=== PATIENT | male | born 1955 | race Caucasian/White ===

== ENCOUNTER 2017-10-29 06:02 | Day surgery (SDC) | END 2017-10-29 17:53 | disposition home or self-care (01) ==

== ENCOUNTER 2019-02-24 15:41 | Emergency (ER) | payer OTHER ==
[~2019-02-24] VITALS: Ht 165.1 cm; Wt 101.8 kg
[~2019-02-24 15:41] MED LIST: ASPI-817 PO; ATOR40TA68 PO; BENA40TA56 PO; CLOP75TA27 PO; GEMF600T8 PO
[2019-02-24 15:52] VITALS: Ht 165.1 cm; Wt 101.8 kg
--- NOTE | 2019-02-24 16:06 | ERD ---
ER Documentation Chief Complaint Chief Complaint RIGHT FLANK PAIN, BLOOD IN URINE X3 DAYS, NAUSEA, NO VOMITING HPI The patient is a 63-year-old male, presenting to the ER because of acute right flank pain for the last 3-day with intermittent bloody urine. He denies similar symptoms previously, denies fever, chills, neck pain, complains of right shoulder pain for the last month, denies any trauma, the pain is radiating down to the right side of the chest. He denies hemoptysis, hematemesis, hematochezia. He denies vomiting, dysuria, diarrhea, constipation. He used to smoke until 20 years ago, drinks socially Past medical history: Hypertension, dyslipidemia, CAD, migraine Past surgical history: Stent PCI, cholecystectomy, left leg surgery ROS All systems reviewed and are negative except as per history of present illness. Medications Home Meds Active Scripts Ibuprofen* (Motrin*) 600 Mg Tab, 600 MG PO Q6H PRN for PAIN AND OR ELEVATED TEMP, #20 TAB Prov:RIVAS CARROLL MD 02/24/19 Reported Medications Sumatriptan Succinate* (Sumatriptan Succinate* Inj) 6 Mg/0.5 Ml Pen.injctr, 6 MG SQ NEEDED PRN for MIGRAINE, EA MAX 6 mg/dose, repeat in 1 hour if needed. MAX 12 mg/24 hours 02/24/19 Clopidogrel Bisulfate* (Clopidogrel Bisulfate*) 75 Mg Tablet, 75 MG PO DAILY, #30 TAB 02/24/19 Atorvastatin* (Atorvastatin*) 40 Mg Tablet, 40 MG PO QHS, #30 TAB 02/24/19 Topiramate* (Topiramate*) 50 Mg Tablet, 50 MG PO BID, TAB 02/24/19 Terazosin Hcl* (Terazosin Hcl*) 5 Mg Capsule, 5 MG PO HS, CAP 02/24/19 Aspirin* (Aspirin* EC) 81 Mg Tablet.dr, 81 MG PO DAILY, TAB 02/24/19 Amlodipine Besylate* (Amlodipine Besylate*) 10 Mg Tablet, 10 MG PO DAILY, #30 TAB 02/24/19 Gemfibrozil* (Gemfibrozil*) 600 Mg Tablet, 600 MG PO BID, TAB 02/24/19 Sertraline Hcl* (Sertraline Hcl*) 50 Mg Tablet, 50 MG PO DAILY, #30 TAB 02/24/19 Discontinued Reported Medications Atorvastatin* (Atorvastatin*) 40 Mg Tablet, 40 MG PO DAILY, #30 10/29/17 Aspirin* (Aspirin* EC) 81 Mg Tablet.dr, 81 MG PO DAILY, #30 10/29/17 Benazepril Hcl* (Benazepril Hcl*) 40 Mg Tablet, 40 MG PO DAILY, #30 10/29/17 Gemfibrozil* (Gemfibrozil*) 600 Mg Tablet, 600 MG PO BID, #60 10/29/17 Discontinued Scripts Clopidogrel Bisulfate (Clopidogrel) 75 Mg Tablet, 75 MG PO DAILY, #30 TAB 11 Refills Prov:Rivas Bronson DO 10/29/17 Allergies Allergies: Coded Allergies: No Known Allergy (Unverified , 02/24/19) PMhx/Soc History of Surgery: Yes (TONSIL,APPY,CHOLECYSTECTOMY, LOWER LEG/FOOT RECONSTRUCTION ) Anesthesia Reaction: No Hx Neurological Disorder: No Hx Respiratory Disorders: No Hx Cardiac Disorders: Yes (HTN, CHOLESTEROL ) Hx Psychiatric Problems: No Hx Miscellaneous Medical Probl: No Hx Alcohol Use: No Hx Substance Use: No Hx Tobacco Use: No Physical Exam Vitals Vital Signs Date Temp Pulse Resp B/P (MAP) Pulse Ox O2 O2 Flow FiO2 Time Delivery Rate 02/24/19 68 18 120/84 100 Room Air 21:55 (96) 02/24/19 86 16 144/83 97 Room Air 19:58 (103) 02/24/19 67 18 121/70 100 Room Air 16:03 (87) 02/24/19 98.1 78 17 111/57 97 15:52 (75) Physical Exam Const: No acute distress. Head: Atraumatic. Eyes: Normal Conjunctiva. ENT: Normal External Ears, Nose and Mouth. Neck: Full range of motion. No meningismus. Resp: Clear to auscultation bilaterally. Cardio: Regular rate and rhythm. Abd: Soft, non distended, normal bowel sounds, non tender. Mild right flank tenderness, no right lower quadrant/right upper quadrant/epi gastric/rigidity/rebound tenderness Skin: No petechiae or rashes. Back: No midline or flank tenderness. Ext: No cyanosis, or edema. Mild vague right shoulder tenderness, no crepitus, not warm to touch Neur: Awake and alert. No focal deficit Psych: Normal Mood and Affect. Result Diagram: 02/24/19 1624 02/24/19 1624 Results 24 hrs Laboratory Tests Test 02/24/19 16:24 02/24/19 19:37 White Blood Count 8.4 10^3/ul Red Blood Count 5.09 10^6/ul Hemoglobin 14.4 g/dl Hematocrit 42.5 % Mean Corpuscular Volume 83.5 fl Mean Corpuscular Hemoglobin 28.3 pg Mean Corpuscular Hemoglobin Concent 33.9 g/dl Red Cell Distribution Width 12.8 % Platelet Count 193 10^3/UL Mean Platelet Volume 9.0 fl Immature Granulocytes % 0.200 % Neutrophils % 78.8 % Lymphocytes % 15.0 % Monocytes % 5.2 % Eosinophils % 0.6 % Basophils % 0.2 % Nucleated Red Blood Cells % 0.0 /100WBC Immature Granulocytes # 0.020 10^3/ul Neutrophils # 6.6 10^3/ul Lymphocytes # 1.3 10^3/ul Monocytes # 0.4 10^3/ul Eosinophils # 0.1 10^3/ul Basophils # 0.0 10^3/ul Nucleated Red Blood Cells # 0.0 10^3/ul Sodium Level 138 mmol/L Potassium Level 3.9 mmol/L Chloride Level 105 mmol/L Carbon Dioxide Level 24 mmol/L Anion Gap 9 Blood Urea Nitrogen 26 mg/dl Creatinine 1.15 mg/dl Est Glomerular Filtrat Rate mL/min > 60 mL/min Glucose Level 119 mg/dl Calcium Level 9.1 mg/dl Total Bilirubin 0.4 mg/dl Direct Bilirubin 0.00 mg/dl Indirect Bilirubin 0.4 mg/dl Aspartate Amino Transf (AST/SGOT) 32 IU/L Alanine Aminotransferase (ALT/SGPT) 35 IU/L Alkaline Phosphatase 60 IU/L Total Protein 7.2 g/dl Albumin 4.0 g/dl Globulin 3.20 g/dl Albumin/Globulin Ratio 1.25 Lipase 183 U/L Bedside Urine pH (LAB) 7.0 Bedside Urine Protein (LAB) Negative Bedside Urine Glucose (UA) Negative Bedside Urine Ketones (LAB) Negative Bedside Urine Blood Negative Bedside Urine Nitrite (LAB) Negative Bedside Urine Leukocyte Esterase (L Negative Current Medications Medications Dose Sig/Radha Start Time Status Last (Trade) Ordered Route PRN Stop Time Admin Dose Reason Admin Sodium 1,000 ml @ Q1H ONCE 02/24/19 DC 02/24/19 Chloride 1,000 mls/hr IV 16:30 16:37 02/24/19 17:29 IV Flush 10 ml STK-MED 02/24/19 DC (NS 10 ml) ONCE .ROUTE 17:10 02/24/19 17:11 Sodium 100 ml @ ud STK-MED 02/24/19 DC Chloride ONCE .ROUTE 17:10 02/24/19 17:11 Iohexol 100 ml @ ud STK-MED 02/24/19 DC ONCE .ROUTE 17:10 02/24/19 17:11 Ketorolac 30 mg ONCE STAT 02/24/19 DC 02/24/19 Tromethamine IV 19:25 19:55 (Toradol) 02/24/19 19:33 Procedures/MDM [address] [address] Radiology Main Line: [phone] DIAGNOSTIC IMAGING REPORT Patient: NATY GARRETT : 1955 Age: 63 Sex: M MR #: [id number] DOS: 02/24/191924 Ordering MD: RIVAS CARROLL MD Location: E/R Room/Bed: PROCEDURE: XR Right Shoulder. CLINICAL INDICATION: Right shoulder pain. TECHNIQUE: Three views. Frontal internal rotation, frontal external rotation, and scapular Y-view. COMPARISON: No prior study is available for comparison. FINDINGS: There is no fracture or dislocation. The soft tissues are normal. Articular surfaces are intact. There is no lytic or blastic lesion. There is no radiopaque foreign body. IMPRESSION: 1. Normal images of the right shoulder. RPTAT: QQ .Andrzej Bullock MD, Date Time Electronically viewed and signed by .Andrzej Bullock MD, on 02/24/2019 23:30 .R/ CC: RIVAS CARROLL MD [id number] [address] [address] Radiology Main Line: [phone] DIAGNOSTIC IMAGING REPORT Patient: NATY GARRETT : 1955 Age: 63 Sex: M MR #: [id number] DOS: 02/24/19 1619 Ordering MD: RIVAS CARROLL MD Location: E/R Room/Bed: PROCEDURE: CTA Chest and pulmonary angiogram. CLINICAL INDICATION: Chest pain TECHNIQUE: CT scan of the chest and CT pulmonary angiogram was performed on a multidetector high-resolution CT scanner. Coronal and sagittal reformatted images were obtained as well. 3D volumetric MIP images were rendered. The patient was examined following the uncomplicated intravenous administration of 100 cc of Isovue 370 IV contrast. DICOM images are available. CTDI 20.1 mGy, and DLP 764.07 mGy-cm. One or more of the following dose reduction techniques were used: - Automated exposure control. - Adjustment of the mA and/or kV according to patient size. - Use of iterative reconstruction technique. COMPARISON: No prior studies are available for comparison. FINDINGS: Images soft tissues demonstrate the thoracic aorta and great vessels are normal in appearance. The pulmonary arteries are normal in appearance with no evidence of pulmonary emboli. The heart is normal in size. The mediastinum is unremarkable. The visualized thyroid is normal. Images of the lungs demonstrate the lungs are clear without consolidation. No evidence of pulmonary nodules are seen. Mild hazy ground-glass densities seen in the dependent portions lung consistent with atelectasis. The osseous structures are unremarkable. The upper abdomen is unremarkable. IMPRESSION: No evidence of pulmonary embolus. CT of the chest at demonstrates minimal bibasilar atelectasis RPTAT: [facility] Physician Katelyn Date Time Electronically viewed and signed by Physician Katelyn on 02/24/2019 18:16 RL/ CC: RIVAS CARROLL MD [id number] [address] [address] Radiology Main Line: [phone] DIAGNOSTIC IMAGING REPORT Patient: NATY GARRETT : 1955 Age: 63 Sex: M [id number] DOS: 02/24/19 1609 Ordering MD: RIVAS CARROLL MD Location: E/R Room/Bed: PROCEDURE: CT Abdomen and Pelvis without contrast. CLINICAL INDICATION: Abdominal and back pain TECHNIQUE: CT scan of the abdomen and pelvis without contrast was performed on a multi-detector high-resolution CT scanner. The patient was scanned without IV contrast. Coronal and sagittal reformatted images were obtained from the axial source images. DICOM images are available. CTDI equals 22.4 mGy, and DLP equals are 1488.9 mGy-cm. One or more of the following dose reduction techniques were used: - Automated exposure control. - Adjustment of the mA and/or kV according to patient size. - Use of iterative reconstruction technique. COMPARISON: None. FINDINGS: Images of the abdominal organs demonstrate the liver is unremarkable in appearance. The patient status post cholecystectomy. There is no intra or extrahepatic ductal dilatation. The pancreas, spleen and adrenal glands are normal in appearance. The kidneys are symmetric in appearance. No hydronephrosis is seen. There is a hypodensity within the right renal pole which measures 1.6 cm. Images of the bowel loops demonstrate there are unremarkable without evidence of wall thickening or fatty stranding. Calcifications are scattered in the aorta. Within the central mesentery is somewhat of a swirling of vessels with hazy ground-glass density of the mesentery. No lymphadenopathy is seen. Images of the pelvis demonstrate the visualized bowel loops are unremarkable. The appendix is not visualized however no pericecal fat stranding is present. The bladder is unremarkable. There are prostatic calcifications present. There is a right greater left inguinal hernia containing fat only. No free fluid is visualized. Osseous structures demonstrate scattered spurs along the lower thoracic spine. The lung bases are clear. IMPRESSION: CT of the abdomen pelvis demonstrates the bowel loops are normal in appearance however there is a subtle swirling of the central mesenteric vessels to the left with diffuse ground-glass density of the mesentery. This could represent an inflammatory process such as a panniculitis versus inflammatory changes from questionable internal hernia. No obstruction is seen. Bilateral inguinal hernias containing fat. Status post cholecystectomy Hypodense lesion of the inferior pole the right kidney which can represent a cyst. Ultrasound can be obtained to better evaluate. RPTAT: [facility] Physician Katelyn Date Time Electronically viewed and signed by Physician Katelyn on 02/24/2019 18:14 RL/ CC: RIVAS CARROLL MD [id number] MEDICAL MAKING DECISION: The patient is a 63-year-old male, presenting with acute right flank pain, acute right shoulder pain, acute dehydration. He was treated with 1 L normal saline for acute dehydration, Toradol 30 IV for pain with good response, is stable for outpatient follow-up The differential diagnoses considered include but are not limited to recently passed kidney stone, renal colic, cholelithiasis, cholecystitis, samina docholithiasis, cholangitis, pancreatitis, hepatitis, gastritis, peptic ulcer disease, gastric ulcer, appendicitis, cystitis, diverticulitis, partial small bowel obstruction. Departure Diagnosis: Primary Impression: Flank pain Additional Impressions: Dehydration Right shoulder pain Renal cyst Condition: Good Comments He was discharged with Motrin I discussed the findings with the patient. I advised the patient to follow-up with the primary physician in about 1-2 days, sooner if needed and return if any concern, advised that if pain persist, he need mri for further eval. Disclaimer: Inadvertent spelling and grammatical errors are likely due to EHR/dictation software use and do not reflect on the overall quality of patient care. Also, please note that the electronic time recorded on this note does not necessarily reflect the actual time of the patient encounter. RIVAS CARROLL MD Feb 24, 2019 16:06
[2019-02-24] MEDS ORDERED: SOD CHLORIDE 0.9% 1,000 ML IV ONE (16:30)
[2019-02-24] MEDS ORDERED: GEMF600T8 PO (17:01)
[2019-02-24] MEDS ORDERED: SERT50TA6 PO (17:01)
[2019-02-24] MEDS ORDERED: AMLO-147 PO (17:02)
[2019-02-24] MEDS ORDERED: ASPI-817 PO (17:02)
[2019-02-24] MEDS ORDERED: TOPI50TA13 PO (17:03)
[2019-02-24] MEDS ORDERED: TERA5CAP3 PO (17:03)
[2019-02-24] MEDS ORDERED: CLOP75TA19 PO (17:03)
[2019-02-24] MEDS ORDERED: ATOR40TA68 PO (17:03)
[2019-02-24] MEDS ORDERED: SUMA6PEN SQ (17:04)
[2019-02-24] MEDS ORDERED: SOD CHLORIDE 0.9% 100 ML ONE (17:10)
[2019-02-24] MEDS ORDERED: IOHEXOL 100 ML ONE (17:10)
[2019-02-24] MEDS ORDERED: KETOROLAC 30 MG INJ IV STA (19:25)
[2019-02-24] MEDS ORDERED: IBUP-1542 PO (21:13)
[2019-02-24 21:55] VITALS: BP 120/84; PULSE 68; RESP 18
== END 2019-02-24 21:58 | disposition home or self-care (01) ==
LOC: E/R 15:41
DX: E86.0 Dehydration (principal); M25.511 Pain in right shoulder; N28.1 Cyst of kidney, acquired; I10 Essential (primary) hypertension; I25.10 Atherosclerotic heart disease of native coronary artery without angina pectoris
CPT/HCPCS: 71275; 73030; 74176; 80053; 81003; 83690; 85025; J1885; J7030; Q9967; Z7610; 36415; 96361; 96374